=== PATIENT | female | born 1960 | race Caucasian/White ===

== ENCOUNTER → 2020-10-20 07:27 | Outpatient (CLI) | payer BC, SELFPAY ==
--- NOTE | ~2020-10-20 | MM_ITS ---
EXAMINATION: MM screening [facility] BI w dilcia HISTORY: Screening mammogram TECHNIQUE: Craniocaudal and mediolateral oblique 3-D tomosynthesis images were obtained and synthetic 2-D images were generated. CAD analysis was submitted and interpreted. COMPARISON: 09/26/2019, 08/19/2018, 08/13/2017 bilateral digital screening mammogram examinations BREAST PARENCHYMAL COMPOSITION: There are scattered areas of fibroglandular density. FINDINGS: There is no evidence of suspicious mass, calcification, or architectural distortion to sugg est malignancy in either breast. There has been no suspicious interval change. IMPRESSION: 1. No mammographic evidence of malignancy. 2. Recommend routine screening mammography in one year. BI-RADS Category 1: Negative Reviewed, dictated and finalized at location A. OPERATOR INSULATOR
== END ==
PROVIDERS: Visit Provider Nurse Practitioner
DX: Z12.31 Encounter for screening mammogram for malignant neoplasm of breast (principal)
CPT/HCPCS: 77063; 77067

== ENCOUNTER → 2021-11-01 13:06 | Outpatient (CLI) | payer BC, SELFPAY ==
--- NOTE | ~2021-11-01 | DEXA_ITS ---
Bone Density Report Name: NICOLLE BLAND Age: 61 Sex: Female Ethnicity: White Date of : 1960 Indication: osteopenia; height loss; postmenopausal Referring Provider: Nicole, Jing Study: Bone densitometry was performed. Exam Date: November 01, 2021 Accession number: [id number] Bone Density: Region BMD T-score Z-score Classification AP Spine (L1-L4) 1.019 -0.3 1.3 Normal Femoral Neck (Left) 0.656 -1.7 -0.4 Osteopenia Total Hip (Left) 0.814 -1.0 0.0 Normal Femoral Neck (Right) 0.647 -1.8 -0.5 Osteopenia Total Hip (Right) 0.822 -1.0 0.1 Normal Total Hip Mean 0.818 -1.0 0.1 Normal World Health Organization criteria for BMD impression classify patients as: Normal (T-score at or above -1.0), Osteopenia (T-score between -1.0 and -2.5), or Osteoporosis (T-score at or below -2.5). 10-year Fracture Risk(1): Major Osteoporotic Fracture 9.2% Hip Fracture 1.1% Reported Risk Factors: [place] (), Neck BMD=0.647, BMI=23.7 (1) FRAX(R) Version 3.08. Fracture probability calculated for an untreated patient. Fracture probability may be lower if the patient has received treatment. Previous Exams: Region Exam Age BMD T-score BMD Change BMD Change Date g/cm2 vs Baseline vs Previous AP Spine(L1-L4) 11/01/2021 61 1.019 -0.3 0.078* 0.035* 09/26/2019 59 0.985 -0.6 0.043* 0.034* 08/19/2017 57 0.951 -0.9 0.009 0.009 08/10/2015 55 0.941 -1.0 Total Hip(Left) 11/01/2021 61 0.814 -1.0 0.013 0.003 09/26/2019 59 0.811 -1.1 0.010 0.015 08/19/2017 57 0.796 -1.2 -0.005 -0.005 08/10/2015 55 0.801 -1.2 Total Hip(Right) 11/01/2021 61 0.822 -1.0 0.023 0.017 09/26/2019 59 0.805 -1.1 0.006 0.009 08/19/2017 57 0.796 -1.2 -0.003 -0.003 08/10/2015 55 0.799 -1.2 *Denotes significance at 95% confidence level, LSC for AP Spine = 0.022 g/cm2, LSC for Total Hip = 0.027 g/cm2 Clinical Information Provided by Patient: Has used the following medications: Evista (i.e. raloxifene), Calcium, Multi vitamin Patient maximum height was 66 Menopause Age: 54 No regular weight bearing exercise Drinks caffeinated beverages Onset of menses at age 10 Number of children 1 Impression: The patient has low bone mass, based on the Right Fe
--- NOTE | ~2021-11-01 | MM_ITS ---
EXAMINATION: MM screening [facility] BI w dilcia HISTORY: Screening mammogram TECHNIQUE: Craniocaudal and mediolateral oblique 3-D tomosynthesis images were obtained and synthetic 2-D images were generated. CAD analysis was submitted and interpreted. COMPARISON: October 20, 2020, September 26, 2019, August 19, 2018 bilateral screening mammogram exam inations BREAST PARENCHYMAL COMPOSITION: The breasts are extremely dense, which lowers the sensitivity of mamm ography. FINDINGS: Right breast: Approximately 5 mm irregular asymmetric density is noted in the mid to lower right breast at mid dept h on MLO view (MLO Tomosynthesis image 46/77). Diagnostic right mammogram is recommended, with ultras ound if required. Left breast: There is no evidence of suspicious mass, calcification, or architectural distortion to suggest malig ailyn in the left breast. There has been no suspicious interval change. IMPRESSION: 1. New mammographic asymmetry and right breast 2. Diagnostic right mammogram is recommended, with ultrasound if required BI-RADS Category 0: Incomplete: Needs additional imaging evaluation. Reviewed, dictated and finalized at location A. OPERATOR
== END ==
PROVIDERS: PCP Internal Medicine; Visit Provider Nurse Practitioner
DX: Z12.31 Encounter for screening mammogram for malignant neoplasm of breast (principal); M85.88 Other specified disorders of bone density and structure, other site; R92.8 Other abnormal and inconclusive findings on diagnostic imaging of breast; M85.852 Other specified disorders of bone density and structure, left thigh; M85.851 Other specified disorders of bone density and structure, right thigh
CPT/HCPCS: 77063; 77067; 77080

== ENCOUNTER → 2021-11-15 07:41 | Outpatient (CLI) | payer BC, SELFPAY ==
--- NOTE | ~2021-11-15 | MMUS_ITS ---
EXAMINATION: MM diagnostic kenny RT w dilcia, US breast RT complete HISTORY: Follow-up right breast asymmetry TECHNIQUE: Additional 3-D tomosynthesis images of the right breast were performed and synthetic 2-D i mages were generated. CAD analysis was submitted and interpreted. High resolution complete right kelvin st ultrasound was performed. COMPARISON: 11/01/2021 BREAST PARENCHYMAL COMPOSITION: Breast composed of scattered areas of fibroglandular density. FINDINGS: MAMMOGRAPHIC FINDINGS: There are no suspicious masses, calcifications or architectural distortion to suggest malignancy. ULTRASOUND: Complete US of all 4 quadrants of the right breast and retroareolar region was reviewed. Normal heter ogeneous echotexture without focal solid or cystic mass. IMPRESSION: 1. No evidence for malignancy in the right breast. 2. Routine yearly screening mammogram and regular clinical breast examination are recommended. BI-RADS Category 1: Negative Reviewed, dictated and finalized at location A. E FURNACE TENDER IMPRESSION: 1. No evidence for malignancy in the right breast. 2. Routine yearly screening mammogram and regular clinical breast examination a re recommended. BI-RADS Category 1: Negative
== END ==
PROVIDERS: Visit Provider Obstetrics & Gynecology Gynecology
DX: R92.8 Other abnormal and inconclusive findings on diagnostic imaging of breast (principal)
CPT/HCPCS: 76641; 77061; 77065; G0279

== ENCOUNTER → 2022-11-12 13:17 | Outpatient (CLI) | payer BC, SELFPAY ==
--- NOTE | ~2022-11-12 | MM_ITS ---
EXAMINATION: MM screening [place] BI w [facility]cia HISTORY: Screening mammogram TECHNIQUE: Craniocaudal and mediolateral oblique 3-D tomosynthesis images were obtained and synthetic 2-D images were generated. CAD analysis was submitted and interpreted. COMPARISON: 11/15/2021, 11/01/2021, 10/20/2020, 09/26/2019 BREAST PARENCHYMAL COMPOSITION: There are scattered areas of fibroglandular density. FINDINGS: No suspicious mass, calcification, or architectural distortion are identified in either [place] ast to suggest malignancy. There has been no suspicious interval change. IMPRESSION: 1. No mammographic evidence of malignancy. 2. Recommend routine screening mammography in one year. BI-RADS Category 1: Negative Reviewed, dictated and finalized at location A. EING TORCH OPERATOR
== END ==
PROVIDERS: PCP Family Medicine; Visit Provider Nurse Practitioner
DX: Z12.31 Encounter for screening mammogram for malignant neoplasm of breast (principal)
CPT/HCPCS: 77063; 77067

== ENCOUNTER 2024-02-05 10:47 | Outpatient (CLI) | payer BC, SELFPAY ==
--- NOTE | ~2024-02-05 | DEXA_ITS ---
Bone Density Report Name: NICOLLE BLAND Age: 64 Sex: Female Ethnicity: White Date of : 1960 Indication: postmenopausal; screening for osteoporosis; height loss; cancer; hysterectomy; Referring Provider: Nicole, Jing Study: Bone densitometry was performed. Exam Date: February 05, 2024 Accession number: [id number] Bone Density: Region BMD T-score Z-score Classification AP Spine (L1, L2, L3) 0.944 -0.7 1.0 Normal Femoral Neck (Left) 0.621 -2.1 -0.6 Osteopenia Total Hip (Left) 0.760 -1.5 -0.3 Osteopenia Femoral Neck (Right) 0.652 -1.8 -0.3 Osteopenia Total Hip (Right) 0.789 -1.3 -0.1 Osteopenia Total Hip Mean 0.775 -1.4 -0.2 Osteopenia World Health Organization criteria for BMD impression classify patients as: Normal (T-score at or above -1.0), Osteopenia (T-score between -1.0 and -2.5), or Osteoporosis (T-score at or below -2.5). 10-year Fracture Risk(1): Major Osteoporotic Fracture 9.1% Hip Fracture 1.4% Reported Risk Factors: [place] (), Neck BMD=0.621, BMI=19.4 (1) FRAX(R) Version 3.08. Fracture probability calculated for an untreated patient. Fracture probability may be lower if the patient has received treatment. Previous Exams: Region Exam Age BMD T-score BMD Change BMD Change Date g/cm2 vs Baseline vs Previous AP Spine(L1, L2, L3) 02/05/2024 64 0.944 -0.7 0.040* -0.024* 11/01/2021 61 0.968 -0.5 0.064* 0.024* 09/26/2019 59 0.944 -0.7 0.039* 0.065* 08/19/2017 57 0.878 -1.3 -0.026* -0.026* 08/10/2015 55 0.904 -1.0 Total Hip(Left) 02/05/2024 64 0.760 -1.5 -0.041* -0.054* 11/01/2021 61 0.814 -1.0 0.013 0.003 09/26/2019 59 0.811 -1.1 0.010 0.015 08/19/2017 57 0.796 -1.2 -0.005 -0.005 08/10/2015 55 0.801 -1.2 Total Hip(Right) 02/05/2024 64 0.789 -1.3 -0.010 -0.033* 11/01/2021 61 0.822 -1.0 0.023 0.017 09/26/2019 59 0.805 -1.1 0.006 0.009 08/19/2017 57 0.796 -1.2 -0.003 -0.003 08/10/2015 55 0.799 -1.2 *Denotes significance at 95% confidence level, LSC for AP Spine = 0.022 g/cm2, LSC for Total Hip = 0.027 g/cm2 Clinical Information Provided by Patient: Has used the following medications: Evista (i.e. raloxifene), Calcium Has the following medical conditions: Cancer, Hysterectomy Patient
== END 2024-02-05 10:48 ==
PROVIDERS: PCP Nurse Practitioner; Visit Provider Nurse Practitioner
DX: M85.89 Other specified disorders of bone density and structure, multiple sites (principal); Z78.0 Asymptomatic menopausal state; Z13.820 Encounter for screening for osteoporosis
CPT/HCPCS: 77080

== ENCOUNTER 2024-04-28 12:39 | Outpatient (CLI) | payer BC, SELFPAY ==
--- NOTE | ~2024-04-28 | MM_ITS ---
EXAMINATION: MM screening [facility] BI w dilcia HISTORY: Screening TECHNIQUE: Craniocaudal and mediolateral oblique 3-D tomosynthesis images were obtained and synthetic 2-D images were generated. CAD analysis was submitted and interpreted. COMPARISON: Comparison to multiple prior studies sequentially, with oldest reviewed study dated 08/07. BREAST PARENCHYMAL COMPOSITION: Dense: The breasts are extremely dense, which lowers the sensitivity of mammography. FINDINGS: There is no evidence of suspicious mass, calcification, or architectural distortion to sugg est malignancy in either breast. There has been no suspicious interval change. IMPRESSION: 1. No mammographic evidence of malignancy. 2. Recommend routine screening mammography in one year. BI-RADS Category 1: Negative Reviewed, dictated and finalized at location B.
== END 2024-04-28 12:40 ==
LOC: MICIMG 12:39
PROVIDERS: PCP Nurse Practitioner; Visit Provider Nurse Practitioner
DX: Z12.31 Encounter for screening mammogram for malignant neoplasm of breast (principal)
CPT/HCPCS: 77063; 77067

== ENCOUNTER 2025-05-01 12:56 | Outpatient (CLI) | payer MEDICARE, OTHER, SELFPAY ==
--- NOTE | ~2025-05-01 | MM_ITS ---
EXAMINATION: MM screening [facility] BI w dilcia HISTORY: Screening TECHNIQUE: Craniocaudal and mediolateral oblique 3-D tomosynthesis images were obtained and synthetic 2-D images were generated. CAD analysis was submitted and interpreted. COMPARISON: Comparison to multiple prior studies sequentially, with oldest reviewed study dated 08/19/2018. BREAST PARENCHYMAL COMPOSITION: The breasts are extremely dense, which lowers the sensitivity of mammography. FINDINGS: There is no evidence of suspicious mass, calcification, or architectural distortion to suggest malignancy in either breast. IMPRESSION: 1. No mammographic evidence of malignancy. 2. Recommend routine screening mammography in one year. BI-RADS Category 1: Negative Reviewed, dictated and finalized at location B.
== END 2025-05-01 12:57 | disposition home or self-care (01) ==
LOC: MICIMG 13:03
PROVIDERS: PCP Obstetrics & Gynecology Gynecology; Visit Provider Obstetrics & Gynecology Gynecology
DX: Z12.31 Encounter for screening mammogram for malignant neoplasm of breast (principal)
CPT/HCPCS: 77063; 77067